=== PATIENT | female | born 1990 | race Caucasian/White ===

== ENCOUNTER 2017-12-24 11:03 | Emergency (ER) | payer BC ==
--- NOTE | 2017-12-24 11:13 | ER Document Report ---
ED Medical Screen (RME) - General Chief Complaint: Headache Stated Complaint: HEADACHE Mode of Arrival: Ambulatory Information source: Patient Notes: 27-year-old female 1 para 0 approximately 20 weeks presents after having 2 principal episodes today. Patient notes she was at work has not been eating or drinking well the past few days noted she felt lightheaded was able to hold onto a rail and gently go to the ground. Patient denies any other significant trauma or bleeding notes when she got up she had a second such episode I have greeted and performed a rapid initial assessment of this patient. A comprehensive ED assessment and evaluation of the patient, analysis of test results and completion of the medical decision making process will be conducted by additional ED providers. PHYSICAL EXAMINATION: GENERAL: Well-appearing, well-nourished and in no acute distress. HEAD: Atraumatic, normocephalic. EYES: Pupils equal round extraocular movements intact, conjunctiva are normal. ENT: Nares patent NECK: Normal range of motion LUNGS: No respiratory distress Musculoskeletal: Normal range of motion NEUROLOGICAL: Normal speech, normal gait. PSYCH: Normal mood, normal affect. SKIN: Warm, Dry, normal turgor, no rashes or lesions noted. - Related Data Allergies/Adverse Reactions: No Known Allergies Allergy (Unverified 12/24/17 11:06) Physical Exam - Vital signs Vitals: Temp Pulse BP Pulse Ox 98.8 F 87 108/50 L 100 12/24/17 11:08 12/24/17 11:08 12/24/17 11:08 12/24/17 11:08 Course - Vital Signs Vital signs: Temp Pulse Resp BP Pulse Ox 98.8 F 87 108/50 L 100 12/24/17 11:08 12/24/17 11:08 12/24/17 11:08 12/24/17 11:08
[2017-12-24 11:51] LABS: ABSOLUTE EOSINOPHILS # (AUTO) 0.3 10^3/uL (0.0-0.6); ABSOLUTE LYMPHOCYTES (AUTO) 1.2 10^3/uL (0.5-4.7); ABSOLUTE MONOCYTES (AUTO) 0.4 10^3/uL (0.1-1.4); ABSOLUTE NEUT (AUTO) 6.4 10^3/uL (1.7-8.2); BASOPHILS % (AUTO) 0.3 % (0-2); EOSINOPHILS % (AUTO) 3.4 % (0-6); HEMATOCRIT 36.4 % (36.0-47.0); HEMOGLOBIN 12.5 g/dL (12.0-15.5); LYMPHOCYTES % (AUTO) 14.7 % (13-45); MEAN CORPUSCULAR HEMOGLOBIN 31.8 pg (27.0-33.4); MEAN CORPUSCULAR HGB CONC 34.3 g/dL (32.0-36.0); MEAN CORPUSCULAR VOLUME 93 fl (80-97); MONOCYTES % (AUTO) 4.9 % (3-13); PLATELET COUNT 234 10^3/uL (150-450); RED BLOOD COUNT 3.92 10^6/uL (3.72-5.28); SEGMENTED NEUTROPHILS % (AUTO) 76.7 % (42-78); TOTAL CELLS COUNTED % (AUTO) 100 %; WHITE BLOOD COUNT 8.3 10^3/uL (4.0-10.5)
[2017-12-24 12:00] LABS: APPEARANCE,URINE CLOUDY; BILIRUBIN,URINE NEGATIVE (NEGATIVE); COLOR,URINE YELLOW; GLUCOSE, URINE NEGATIVE (NEGATIVE); KETONES,URINE NEGATIVE (NEGATIVE)
[2017-12-24 12:01] LABS: LEUKOCYTE ESTERASE,URINE LARGE (NEGATIVE); NITRITE,URINE NEGATIVE (NEGATIVE); PROTEIN,URINE NEGATIVE (NEGATIVE); URINE SPECIFIC GRAVITY 1.003; UROBILINOGEN,URINE NEGATIVE mg/dL (<2.0)
[2017-12-24 12:06] LABS: ALANINE AMINOTRANSFERASE 28 U/L (9-52); ALBUMIN 3.6 g/dL (3.5-5.0); ALKALINE PHOSPHATASE 45 U/L (38-126); ANION GAP 10 (5-19); ASPARTATE AMINO TRANSFERASE 20 U/L (14-36); BILIRUBIN,DIRECT 0.2 mg/dL (0.0-0.4); BILIRUBIN,TOTAL 0.6 mg/dL (0.2-1.3); BLOOD UREA NITROGEN 10 mg/dL (7-20); CALCIUM 9.4 mg/dL (8.4-10.2); CARBON DIOXIDE 25 mmol/L (22-30); CHLORIDE 105 mmol/L (98-107); GLUCOSE 70 mg/dL (75-110); POTASSIUM 4.5 mmol/L (3.6-5.0); SODIUM 139.8 mmol/L (137-145); TOTAL PROTEIN 6.4 g/dL (6.3-8.2)
[2017-12-24] MEDS ORDERED: CEPHALEXIN 250 MG CAPSULE PO ONE (12:19)
--- NOTE | 2017-12-24 12:43 | ER Document Report ---
ED General - General Chief Complaint: Headache Stated Complaint: HEADACHE Time Seen by Provider: 12/24/17 11:13 Mode of Arrival: Ambulatory Information source: Patient Notes: Pt is a 27 year old female approximately 20 weeks who presents to the ER today for lightheadedness, headache intermittently for the past 2 weeks and almost passing out just prior to arrival at work. She states she was standing when she felt like she was going to pass out, got lightheaded and sat down. She did not pass out. She admits she hasn't been eating as much because she hasn't had an appeitite. She denies any dysuria, abd cramping, vaginal bleeding, fever, chills, vomiting. She states she follows with OBGYN regularly and has had a normal so far. - Related Data Allergies/Adverse Reactions: No Known Allergies Allergy (Unverified 12/24/17 11:06) Past Medical History - General Information source: Patient - Social History Smoking Status: Never Smoker Chew tobacco use (# tins/day): No Frequency of alcohol use: None Drug Abuse: None Family History: Reviewed & Not Pertinent Patient has suicidal ideation: No Patient has homicidal ideation: No Renal/ Medical History: Denies: Hx Peritoneal Dialysis Past Surgical History: Reports: Hx Tonsillectomy Review of Systems - Review of Systems Constitutional: No symptoms reported EENT: No symptoms reported Cardiovascular: No symptoms reported Respiratory: No symptoms reported Gastrointestinal: No symptoms reported Genitourinary: No symptoms reported Female Genitourinary: See HPI Musculoskeletal: No symptoms reported Skin: No symptoms reported Hematologic/Lymphatic: No symptoms reported Neurological/Psychological: See HPI Physical Exam - Vital signs Vitals: Temp Pulse BP Pulse Ox 98.8 F 87 108/50 L 100 12/24/17 11:08 12/24/17 11:08 12/24/17 11:08 12/24/17 11:08 - Notes Notes: PHYSICAL EXAMINATION: GENERAL: Well-appearing and in no acute distress. HEAD: Atraumatic, normocephalic. EYES: slightly light sensitive, Pupils equal round and reactive to light, extraocular movements intact, sclera anicteric, conjunctiva are normal. NECK: Normal range of motion, supple without lymphadenopathy LUNGS: CTAB and equal. No wheezes rales or rhonchi. HEART: Regular rate and rhythm without murmurs ABDOMEN: Soft, no tenderness. No guarding, no rebound BACK: no vertebral tenderness, normal ROM GI/: no CVA tenderness EXTREMITIES: Normal range of motion, no pitting edema. No cyanosis. NEUROLOGICAL: Cranial nerves grossly intact. Normal sensory/motor exams. PSYCH: Normal mood, normal affect. SKIN: Warm, Dry, normal turgor, no rash Course - Re-evaluation Re-evalutation: 12/24/17 22:46 pt has a UTI on urinalysis today. I will treat her with abx. WBC normal, hgb normal. vitals are all normal. pt to follow up with obgyn. - Vital Signs Vital signs: Temp Pulse Resp BP Pulse Ox 98.4 F 87 18 118/64 98 12/24/17 13:17 12/24/17 11:08 12/24/17 13:17 12/24/17 13:17 12/24/17 13:17 - Laboratory Result Diagrams: 12/24/17 11:22 12/24/17 11:22 Laboratory results interpreted by me: 12/24/17 12/24/17 11:22 11:22 Glucose 70 L Ur Leukocyte Esterase LARGE H Discharge - Discharge Clinical Impression: Pre-syncope Qualifiers: Weeks of gestation: 20 weeks Qualified Code(s): Z3A.20 - 20 weeks gestation of UTI (urinary tract infection) Qualifiers: Urinary tract infection type: acute cystitis Hematuria presence: without hematuria Qualified Code(s): N30.00 - Acute cystitis without hematuria Condition: Stable Disposition: HOME, SELF-CARE Instructions: Cephalexin ([facility]), Urinary Tract Infection ([facility]) Additional Instructions: Return immediately for any new or worsening symptoms. Follow up with primary care provider, call tomorrow to make followup appointment. Drink plenty of water, your sugar was also a little bit low today, try to eat carbohydrates throughout the day to keep her sugar elevated at a normal limit. Prescriptions: Cephalexin [Cephalexin 250 MG Tablet] 1 tab PO BID #10 tablet Forms: Return to Work Referrals: NOMAN AVENDAÑO MD [Primary Care Provider] - Follow up as needed
[2017-12-24 13:18] VITALS: BP 118/64
--- NOTE | 2017-12-24 15:56 | EKG REPORT ---
SEVERITY:- BORDERLINE ECG - ECTOPIC ATRIAL RHYTHM : Confirmed by: Rizwan Mckeon 24-Dec-2017 15:55:16
== END 2017-12-24 13:18 | disposition home or self-care (01) ==
LOC: ER 11:03
DX: O26.892 Other specified pregnancy related conditions, second trimester (principal); R55 Syncope and collapse; R51 Headache; O23.12 Infections of bladder in pregnancy, second trimester; Z3A.20 20 weeks gestation of pregnancy
CPT/HCPCS: 36415; 80053; 81001; 85025; 86900; 86901; 93005; 93010; 99284

== ENCOUNTER 2018-03-24 11:38 | Outpatient (CLI) | payer BC ==
--- NOTE | 2018-03-24 12:37 | Non Stress Test Report ---
Non Stress Test Datetime Report Generated by CPN: 03/24/2018 12:37 DEMOGRAPHIC EGA NST: 33.2 INDICATION Indication for Study: Ordered by Provider Indication for Study (NST) Other: repeat from the office MONITORING Monitor Explained: Monitor Explained; Test Explained; Patient Verbalized Understanding Time on Monitor: 03/24/2018 12:22 Time off Monitor: 03/24/2018 12:36 NST Duration: 14 NST INTERVENTIONS NST Interventions: Reposition Patient Physician Notified NST: P Hill CNM BABY A: [id number] BABY A Movement : Present Contraction Frequency : irreeg FHR Baseline : 140 Accelerations : 15X15 Decelerations : None Variability : Moderate 6-25bpm NST Review: Meets Criteria for Reactive NST NST Review and Verified By : [place] RNC NST Results: Reactive NST REPORT Report Trigger: Send Report
== END 2018-03-24 12:30 | disposition home or self-care (01) ==
LOC: LC 11:38
PROVIDERS: ATTEND Obstetrics & Gynecology
PROC: 4A1HXCZ Monitoring of Products of Conception, Cardiac Rate, External Approach (ICD-10-PCS; principal; 2018-03-24)
DX: Z34.93 Encounter for supervision of normal pregnancy, unspecified, third trimester (principal)
CPT/HCPCS: 59025

== ENCOUNTER 2018-04-21 04:56 | Outpatient (CLI) | payer BC ==
[2018-04-21 05:55] LABS: URINE AMPHETAMINES SCREEN NEGATIVE; URINE BARBITURATES SCREEN NEGATIVE; URINE BENZODIAZEPINES SCREEN NEGATIVE; URINE COCAINE SCREEN NEGATIVE; URINE MARIJUANA (THC) SCREEN NEGATIVE; URINE METHADONE SCREEN NEGATIVE; URINE PHENCYCLIDINE SCREEN NEGATIVE
[2018-04-21 06:18] LABS: APPEARANCE,URINE SLIGHTLY-CLOUDY; BILIRUBIN,URINE NEGATIVE (NEGATIVE); COLOR,URINE YELLOW; GLUCOSE, URINE NEGATIVE (NEGATIVE); KETONES,URINE NEGATIVE (NEGATIVE); LEUKOCYTE ESTERASE,URINE NEGATIVE (NEGATIVE); NITRITE,URINE NEGATIVE (NEGATIVE); PROTEIN,URINE NEGATIVE (NEGATIVE); URINE SPECIFIC GRAVITY 1.011; UROBILINOGEN,URINE NEGATIVE mg/dL (<2.0)
[2018-04-21] MEDS ORDERED: RINGERS SOLUTION,LACTATED 1,000 ML IV PRN (06:53)
[2018-04-21] MEDS ORDERED: RINGERS SOLUTION,LACTATED 1,000 ML IV ONE (06:56)
[2018-04-21] MEDS ORDERED: TERBUTALINE SULFATE INJ/PF 1 MG/1 ML SDV SUBCUT ONE (07:58)
[2018-04-21] MEDS ORDERED: TERBUTALINE SULFATE INJ/PF 1 MG/1 ML SDV ONE (08:01)
== END 2018-04-21 10:09 | disposition short-term general hospital (02) ==
LOC: LC 04:56
PROVIDERS: ATTEND Obstetrics & Gynecology
PROC: 4A1HXCZ Monitoring of Products of Conception, Cardiac Rate, External Approach (ICD-10-PCS; principal; 2018-04-21)
DX: O47.1 False labor at or after 37 completed weeks of gestation (principal); Z3A.37 37 weeks gestation of pregnancy
CPT/HCPCS: 81005; 80307; 59025; J3105

== ENCOUNTER 2020-02-12 10:54 | Outpatient (CLI) | payer BC, MEDICAID ==
--- NOTE | 2020-02-12 11:45 | Non Stress Test Report ---
Non Stress Test Datetime Report Generated by CPN: 02/12/2020 11:44 DEMOGRAPHIC EGA NST: 35.0 INDICATION Indication for Study (NST) Other: provider orders Indication for Study (NST) Other: IUP @ 35.0 wks, IUGR VITAL SIGNS Temperature - NST: 98.0 Temperature - NST: 98.0 Pulse - NST: 77 Pulse - NST: 77 RESP - NST: 18 RESP - NST: 18 NBPSYS NST: 108 NBPSYS NST: 112 NBPDIA NST: 69 NBPDIA NST: 68 MONITORING Monitor Explained: Monitor Explained; Test Explained; Patient Verbalized Understanding Monitor Explained: Monitor Explained; Test Explained; Patient Verbalized Understanding Time on Monitor: 02/12/2020 11:04 Time on Monitor: 02/12/2020 11:04 Time off Monitor: 02/12/2020 11:36 Time off Monitor: 02/12/2020 11:35 NST Duration: 32 NST Duration: 31 NST INTERVENTIONS NST Interventions: PO Hydration; Reposition Patient NST Interventions: PO Hydration Physician Notified NST: pjones Physician Notified NST: Dodie Hill CNM BABY A: [id number] BABY A Movement : Present Movement : Present Contraction Frequency : irregular Contraction Frequency : Irregular FHR Baseline : 120 FHR Baseline : 125 Accelerations : 15X15 Accelerations : 15X15 Decelerations : None Variability : Moderate 6-25bpm Variability : Moderate 6-25bpm NST Review: Meets Criteria for Reactive NST NST Review: Meets Criteria for Reactive NST NST Review and Verified By : félix cruz NST Results: Reactive NST Results: Reactive NST REPORT Report Trigger: Send Report
== END 2020-02-12 11:41 | disposition home or self-care (01) ==
LOC: LC 10:54
PROVIDERS: ATTEND Obstetrics & Gynecology Gynecology
DX: O36.5930 Maternal care for other known or suspected poor fetal growth, third trimester, not applicable or unspecified (principal); Z3A.35 35 weeks gestation of pregnancy
CPT/HCPCS: 59025

== ENCOUNTER 2020-02-27 10:26 | Inpatient (IN) | payer BC, MEDICAID ==
[2020-02-27 11:12] LABS: APPEARANCE,URINE CLEAR; BILIRUBIN,URINE NEGATIVE (NEGATIVE); COLOR,URINE STRAW; GLUCOSE, URINE NEGATIVE (NEGATIVE); KETONES,URINE NEGATIVE (NEGATIVE); LEUKOCYTE ESTERASE,URINE NEGATIVE (NEGATIVE); NITRITE,URINE NEGATIVE (NEGATIVE); PROTEIN,URINE NEGATIVE (NEGATIVE); URINE SPECIFIC GRAVITY 1.003; UROBILINOGEN,URINE NEGATIVE mg/dL (<2.0)
--- NOTE | 2020-02-27 11:41 | Non Stress Test Report ---
Non Stress Test Datetime Report Generated by CPN: 02/27/2020 11:41 DEMOGRAPHIC Test Number: 2 EGA NST: 37.1 VITAL SIGNS Temperature - NST: 98.0 Pulse - NST: 76 RESP - NST: 18 NBPSYS NST: 111 NBPDIA NST: 67 MONITORING Monitor Explained: Monitor Explained; Test Explained; Patient Verbalized Understanding Time on Monitor: 02/27/2020 10:40 Time off Monitor: 02/27/2020 11:00 NST Duration: 20 NST INTERVENTIONS NST Interventions: Reposition Patient Physician Notified NST: Dr. Kinney BABY A: [id number] BABY A Movement : Present Contraction Frequency : irregular FHR Baseline : 125 Accelerations : 15X15 Decelerations : None Variability : Moderate 6-25bpm NST Review: Meets Criteria for Reactive NST NST Review and Verified By : Maru Lee RN NSMary Results: Reactive NST REPORT Report Trigger: Send Report
[2020-02-27 11:44] LABS: URINE AMPHETAMINES SCREEN NEGATIVE; URINE BARBITURATES SCREEN NEGATIVE; URINE BENZODIAZEPINES SCREEN NEGATIVE; URINE COCAINE SCREEN NEGATIVE; URINE MARIJUANA (THC) SCREEN NEGATIVE; URINE METHADONE SCREEN NEGATIVE; URINE PHENCYCLIDINE SCREEN NEGATIVE
--- NOTE | 2020-02-27 13:10 | Admission Physical ---
Datetime Report Generated by CPN: 02/27/2020 13:10 CURRENT ADMISSION Chief Complaint: Decreased Movement; Sent from OB Office for Evaluation and Treatment - Please Specify Chief Complaint Other: IUGR<3% Admit Impression : Repeat Section Admit Impression- Other: Plan for repeat CS due to IUGR <3% and uterine artery dopplers with intermittent end diastolic flow Admit Plan: Admit to Unit; Initiate Section Protocol ALLERGIES Medication Allergies: No Medication Allergies: No Known Allergies (02/12/2020) Latex: No Latex Allergies OBSTETRICAL HISTORY EDC: 03/18/2020 00:00 : 2 Para: 1 Term: 1 : 0 SAB: 1 IAB: 1 Ectopic: 0 Livin Cesareans: 1 VBACs: 0 Multiple Births: 0 Gestational Diabetes: No Rh Sensitization: No Incompetent Cervix: No SHERLEY: No Infertility: No ART Treatment: No Uterine Anomaly: No IUGR: Yes Hx Previous C/S: Yes Macrosomia: No Hx Loss/Stillborn: No PIH: No Hx : No Placenta Previa/Abruption: No Depression/PP Depression: No PTL/PROM: No Post Hemorrhage: No Current Procedures: Ultrasound; NST; BPP; Doppler Flow Study Obstetrical History Comments: G1 - 2017 full-term female, c/s secondary to spina bifida; no other complications G2 - current, IUGR MEDICAL HISTORY Diabetes: No Blood Transfusion: No Pulmonary Disease (Asthma, TB): No Breast Disease: No Hypertension: No Metal Loader Surgery: No Heart Disease: No Hosp/Surgery: Yes Autoimmune Disorder: No Anesthetic Complications: No Kidney Disease: No Abnormal Pap Smear: No Neuro/Epilepsy: No Psychiatric Disorders: No Other Medical Diseases: No Hepatitis/Liver Disease: No Significant Family History: No Varicosities/Phlebitis: No Trauma/Violence : No Thyroid Dysfunction: No Medical History Comments: tonsillectomy as infant, hospitalization for of child in 2018 INFECTIOUS HISTORY Gonorrhea: No Genital Herpes: No Chlamydia: No Tuberculosis: No Syphilis: No Hepatitis: No HIV/AIDS Exposure: No Rash or Viral Illness: No HPV: No PHYSICAL EXAM General: Normal HEENT: Normal Neurologic: Normal Thyroid: Normal Heart: Normal Lungs: Normal Breast: Normal Back: Normal Abdomen: Normal Genitourinary Exam: Normal Extremities: Normal DTRs: Normal Pelvic Type: Adequate Vital Signs: Reviewed; Within Normal Limits VAGINAL EXAM Dilatation: 0 Effacement: 25 Station: -2 Contraction Comments: Irregular contraction MEMBRANES Membranes: Intact FETUS A EGA: 37.1 Monitoring: External US FHR- Baseline: 125 Variability: Moderate 6-25bpm Accelerations: 15X15 Decelerations: None FHR Category: Category I Estimated Weight (gm): 4 lb 16 oz Presentation: Vertex Admit Comment: at 37.1 wks EGA by first trimester US dating presented for Non-reactive NST at office and IUGR of <3% today. SHe had US yesterday showing increased resisitance and today dopplers show absent intermittent end diastolic flow. Discussed iwth patient and recommend repeat CS . Risk and benefits reviewed. ALternatives discussed. Consent signed. -Admit to LDR -CEFM -NPO since 814 (bananna and yogurt) >IVFs LR bolus and then D5 LR at 125cc/hr -Abdominal prep -SCDs -Ancef 2 gms prior to OR -Plan for repeat CS INFORMED CONSENT Informed Consent Obtained: Section Delivery; Risks, Benefits and Alternatives Discussed Signature: with User ID: Benjamin : with User ID: Benjamin
[2020-02-27] MEDS ORDERED: KETOROLAC TROMETHAMINE INJ/PF 30 MG/1 ML SDV ONE (16:02)
[2020-02-27] MEDS ORDERED: EPHEDRINE SULFATE INJ 50 MG/1 ML AMPULE ONE (16:02)
[2020-02-27] MEDS ORDERED: FENTANYL CITRATE INJ/PF 100 MCG/2 ML AMPUL ONE (16:02)
[2020-02-27] MEDS ORDERED: PHENYLEPHRINE HCL INJ/PF 10 MG/1 ML SDV ONE (16:02)
[2020-02-27] MEDS ORDERED: OXYTOCIN 10 UNIT/ML VIAL ONE (16:02)
[2020-02-27] MEDS ORDERED: ONDANSETRON HCL INJ/PF 4 MG/2 ML SDV ONE (16:03)
[2020-02-27] MEDS ORDERED: ACETAMINOPHEN 1,000 MG/100 ML RTUPB IV ONE (16:03)
[2020-02-27] MEDS ORDERED: METHYLERGONOVINE MALEATE INJ/PF 0.2 MG/1 ML AMPULE ONE (16:03)
[2020-02-27] MEDS ORDERED: MIDAZOLAM 2 MG/2 ML INJ ONE (16:03)
[2020-02-27] MEDS ORDERED: CEFAZOLIN SODIUM 1 GM in DEXTROSE 5%-WATER 50 ML IV PRN (16:45)
[2020-02-27] MEDS ORDERED: CEFAZOLIN 1 GM/D5W RTU 1 GM/50 ML RTUPB IV PRN (16:52)
[2020-02-27 17:00] LABS: ABSOLUTE EOSINOPHILS # (AUTO) 0.1 10^3/uL (0.0-0.6); ABSOLUTE LYMPHOCYTES (AUTO) 1.6 10^3/uL (0.5-4.7); ABSOLUTE MONOCYTES (AUTO) 0.4 10^3/uL (0.1-1.4); ABSOLUTE NEUT (AUTO) 4.6 10^3/uL (1.7-8.2); BASOPHILS % (AUTO) 0.5 % (0-2); EOSINOPHILS % (AUTO) 1.9 % (0-6); HEMATOCRIT 38.7 % (36.0-47.0); HEMOGLOBIN 13.2 g/dL (12.0-15.5); MEAN CORPUSCULAR HEMOGLOBIN 31.9 pg (27.0-33.4); MEAN CORPUSCULAR HGB CONC 34.1 g/dL (32.0-36.0); MEAN CORPUSCULAR VOLUME 94 fl (80-97); MONOCYTES % (AUTO) 5.9 % (3-13); PLATELET COUNT 202 10^3/uL (150-450); RED BLOOD COUNT 4.14 10^6/uL (3.72-5.28); RED CELL DISTRIBUTION WIDTH 12.8 % (11.5-14.0); SEGMENTED NEUTROPHILS % (AUTO) 67.7 % (42-78); TOTAL CELLS COUNTED % (AUTO) 100 %; WHITE BLOOD COUNT 6.9 10^3/uL (4.0-10.5)
[2020-02-27] MEDS ORDERED: DEXTROSE 40% GEL 15 GM TUBE PO PRN ×2 (17:10)
[2020-02-27] MEDS ORDERED: OXYCODONE-ACETAMINOPHEN 5-325 MG TABLET PO PRN ×3 (17:10→17:38)
[2020-02-27] MEDS ORDERED: OXYTOCIN/0.9 % SODIUM CHLORIDE 30 UNIT/500 ML RTUINJ IV PRN (17:10)
[2020-02-27] MEDS ORDERED: MEASLES,MUMPS&RUBELLA VACC/PF 0.5 ML VIAL SUBCUT PRN (17:10)
[2020-02-27] MEDS ORDERED: PROMETHAZINE HCL INJ 25 MG/1 ML VIAL IV PRN ×3 (17:10→17:38)
[2020-02-27] MEDS ORDERED: DEXTROSE 50%-WATER 25 GM/50 ML DISP.SYRIN IV PRN ×2 (17:10)
[2020-02-27] MEDS ORDERED: HYDROMORPHONE HCL INJ/PF 2 MG/ML AMPULE IV PRN (17:10)
[2020-02-27] MEDS ORDERED: GLUCAGON,HUMAN RECOMB 1 MG INJ SUBCUT PRN (17:10)
[2020-02-27] MEDS ORDERED: ACETAMINOPHEN 325 MG TABLET PO PRN (17:10)
[2020-02-27] MEDS ORDERED: DIPH/PERTUSS(ACELL)/TETANUS VAC/PF 0.5 ML SYR (>=10YO) IM PRN (17:10)
[2020-02-27] MEDS ORDERED: RINGERS SOLUTION,LACTATED 1,000 ML IV PRN (17:10)
[2020-02-27] MEDS ORDERED: CEFAZOLIN INJ 1 GM VIAL ONE (17:12)
[2020-02-27] MEDS ORDERED: CEFAZOLIN 2 GM/D5W RTU 2 GM/50 ML RTUPB IV ONE (17:13)
[2020-02-27] MEDS ORDERED: FENTANYL CITRATE INJ/PF 100 MCG/2 ML AMPUL IV PRN ×3 (17:38)
[2020-02-27] MEDS ORDERED: MEPERIDINE HCL/PF INJ 25 MG/1 ML DISP.SYRIN IV PRN (17:38)
[2020-02-27] MEDS ORDERED: DIPHENHYDRAMINE HCL 50 MG/ML VIAL IV PRN (17:38)
[2020-02-27] MEDS ORDERED: ONDANSETRON HCL INJ/PF 4 MG/2 ML SDV IV PRN (17:38)
[2020-02-27] MEDS ORDERED: MORPHINE SULFATE 10 MG/ML INJ IV PRN (17:38)
[2020-02-27] MEDS ORDERED: MEPERIDINE HCL/PF INJ 25 MG/1 ML DISP.SYRIN ONE (17:57)
[2020-02-27] MEDS ORDERED: LIDOCAINE 2% INJ-PF (20 MG/ML) 10 ML AMPUL ONE (18:11)
[2020-02-27] MEDS ORDERED: PROPOFOL INJ 200 MG/20 ML VIAL IV ONE (18:11)
[2020-02-27] MEDS ORDERED: ROPIVACAINE HCL 0.2% INJ/PF (2 MG/ML) 20 ML SDV ONE (18:41)
[2020-02-27] MEDS: DOCUSATE SODIUM 100 MG CAPSULE PO SCH (19:41)
[2020-02-27] MEDS ORDERED: MORPHINE SULFATE 10 MG/ML INJ ONE (19:44)
--- NOTE | 2020-02-27 19:56 | Delivery Summary ---
Del Sum A-C Datetime Report Generated by CPN: 02/27/2020 19:56 DELIVERY PERSONNEL DELIVERY PERSONNEL: [id number] Delivery Doctor:: Latonia Kinney MD PHARMACY BILLING ADJUDICATOR:: Jessica Truong CRNA Learning Coach:: Rosaura Lee RN Nursery Nurse:: Pia Longoria RN Financial Service Representative/LINE DECORATOR: Sury Suero, ST Financial Service Representative/LINE DECORATOR: Sandra Sandy, POULTRY CLE[employer]ER MATERNAL INFORMATION Delivery Anesthesia: Spinal Medications After Delivery: Pitocin Drip 20 Units/1000ml NSS; Other-Please Comment Meds After Delivery Comment: started in OR by PHARMACY BILLING ADJUDICATOR; additional 30 units in 500mLs NS given in PACU Delivery QBL: 855 Maternal Complications: None LABOR SUMMARY EDC: 03/18/2020 00:00 No. Babies in Womb: 1 LABOR INFORMATION Group B Beta Strep: Negative STAGES OF LABOR Stage 3 hr: 0 Stage 3 min: 1 VAGINAL DELIVERY Laceration Extension #1: N/A Laceration Repair: Not Applicable Sponge Count Correct: N/A Sharps Count Correct: N/A CSECTION DELIVERY Primary Indication: Repeat Elective Secondary Indication: Other Other Secondary Indication: IUGR CSection Urgency: Non-Scheduled CSection Incidence: Repeat Labor: No Labor Elective: Elective CSection Incision: Lower Uterine Transverse BABY A INFORMATION Delivery Date/Time: 02/27/2020 17:43 Method of Delivery: Nurse Controlled Delivery: No Born in Route : No : N/A Forceps: N/A Vacuum Extraction: N/A Shoulder Dystocia : No PRESENTATION/POSITION BABY A Presentation: Cephalic Cephalic Presentation: N/A Breech Presentation: N/A PLACENTA INFORMATION BABY A Placenta Delivery Time : 02/27/2020 17:44 Placenta Method of Delivery: Manual Removal Placenta Status: Delivered SCORES BABY A Heart Rate 1 min: >100 bpm Resp Effort 1 min: Good Cry Reflex Irritability 1 min: Cough or Sneeze or Pulls Away Muscle Tone 1 min: Active Motion Color 1 min: Blue/Pale SCORE 1 MIN: 8 Heart Rate 5 min: >100 bpm Resp Effort 5 min: Good Cry Reflex Irritability 5 min: Cough or Sneeze or Pulls Away Muscle Tone 5 min: Active Motion Color 5 min: Body [place], Extremities Blue SCORE 5 MIN: 9 INFORMATION BABY A Gestational Age at Delivery: 37.1 Gestational Status: Early Term- 37- 38.6 Weeks Infant Outcome : Liveborn Infant Condition : Stable Infant Sex: Female IDENTIFICATION BABY A Verification Date/Time: 02/27/2020 17:56 ID Band Number: [id number] Mother's Name Verified: Yes Infant RN Verifying : Maru ReynosoQuincyQIAN bruce Additional Verifying Personnel: Taylor Longoria RN WEIGHT/LENGTH BABY A Infant Birthweight (gm): 2291 Weight (lb): 5 Infant Weight (oz): 1 Length (in): 16.00 Length (cm): 40.64 CORD INFORMATION BABY A No. Cord Vessels: 3 Nuchal Cord : N/A Cord Blood Taken: Yes-For Eval (Mom's Blood Type - or O+) Suction: Mouth; Nose ASSESSMENT BABY A Skin to Skin: No Infant Care By: Nursery Transferred To: Nursery
--- NOTE | 2020-02-27 19:56 | Birth Certificate Data ---
Cert Data Datetime Report Generated by CPDarwin: 02/27/2020 19:56 CERTIFICATE DATA 47a. Care: Yes (02/12/2020 11:08:Laura Mcintyre RN) 47b. Date of First Visit: 09/04/2019 00:00 (02/12/2020 11:08:Laura Mcintyre RN) 47c. Date of Last Visit: 02/27/2020 00:00 (02/12/2020 11:08:Laura Mcintyre RN) 47d. Number of Visits: 11 (02/12/2020 11:08:Laura Mcintyre RN) 48a. Number of Prev Live Births: 1 (02/12/2020 11:08:Laura Mcintyre RN) 48b. Now Livin (02/12/2020 11:08:Mary Lomeli RN) 48c. Live Births Now : 0 (02/12/2020 11:08:QS system process) 48e. Losses: 0 (02/12/2020 11:08:Laura Mcintyre RN) RISK FACTORS IN THIS 49a. Diabetes: No (02/12/2020 11:08:Rosaura Lee RN) 49b. Hypertension: No (02/12/2020 11:08:Rosaura Lee RN) 49c. Previous Births: 0 (02/12/2020 11:08:Mary Lomeli RN) 49d. Stillborns: No (02/12/2020 11:08:Rosaura Lee RN) 49d. IUGR: Yes (02/12/2020 11:08:Rosaura Lee RN) 49e. Infertility Treatment: No (02/12/2020 11:08:Rosaura Lee RN) 49f. Previous Cesareans: 1 (02/12/2020 11:08:Laura Mcintyre RN) Mother's Height 50b. Height Inches: 62 (02/27/2020 13:13:QS system process) Mother's Weight 51a. Pre- Weight (lbs): 95 (02/12/2020 11:08:Laura Mcintyre RN) 51b. Weight at Delivery (lbs): 108 (02/27/2020 13:13:QS system process) Infections Present/Treated 53a. Gonorrhea: No (02/12/2020 11:08:Rosaura Lee RN) Results this Hospital Visit : Negative (02/12/2020 11:08:Laura Mcintyre RN) 53b. Syphilis: No (02/12/2020 11:08:Rosaura Lee RN) 53c. Chlamydia: Yes (02/12/2020 11:08:Rosaura Lee RN) Results this Hospital Visit: Negative (02/12/2020 11:08:Laura Mcintyre RN) 53d. Hepatitis B: No (02/12/2020 11:08:Rosaura Lee RN) Results this Hospital Visit: Negative (02/12/2020 11:08:Laura Mcintyre RN) 53e. Hepatitis C: Negative (02/12/2020 11:08:Laura Mcintyre RN) 53h. Mother Tested for HBsAG: Yes (02/12/2020 11:08:Laura Mcintyre RN) 53i. Date Tested: 09/04/2019 00:00 (02/12/2020 11:08:TAMRA Butt 53j. Test Result: Negative (02/12/2020 11:08:Laura Mcintyre RN) Obstetric Procedures 54a, b, c. Obstetric Procedures: Ultrasound; NST; BPP; Doppler Flow Study (02/12/2020 11:08:Rosaura Lee RN) 57c. Non-Vertex Presentation A: N/A (02/12/2020 11:08:Rosaura Lee RN) 57f. Mat Ch[place] or Temp >100.4: 98.8 (02/12/2020 11:08:Rosaura Lee RN) 57h. Intolerance of Labor: Repeat Elective (02/12/2020 11:08:Rosaura Lee RN) : Other (02/12/2020 11:08:Rosaura Lee RN) : IUGR (02/12/2020 11:08:Rosaura Lee RN) Method of Delivery 58a. Forceps - Unsuccessful A: N/A (02/12/2020 11:08:Rosaura Lee RN) 58b. Vacuum - Unsuccessful A: N/A (02/12/2020 11:08:Rosaura Lee RN) 58c. Presentation at 58c. Presentation at - A : N/A (02/12/2020 11:08:Rosaura Lee RN) 58c. Presentation at - A : N/A (02/12/2020 11:08:Rosaura Lee RN) 58c. Presentation at - A : Cephalic (02/12/2020 11:08:Rosaura Lee RN) Final Route and Method of Del 58d. Baby A Route/Delivery: (02/12/2020 11:08:Rosaura Lee RN) 58e. Trial of Labor Attempted A: N/A (02/12/2020 11:08:Rosaura Lee RN) Birthweight Baby A: 2291 (02/12/2020 11:08:Rosaura Lee RN) 60a. Pounds : 5 (02/12/2020 11:08:QS system process) 60b. Ounces: 1 (02/12/2020 11:08:QS system process) 61. GA at Delivery Baby A: 37.1 (02/12/2020 11:08:Rosaura Lee RN) : Early Term- 37- 38.6 Weeks (02/12/2020 11:08:QS system process) 62a. 5 Minute Baby A: 9 (02/12/2020 11:08:QS system process)
--- NOTE | 2020-02-27 20:04 | Operative Report ---
Operative Report DATE OF SURGERY: 02/27/20 PREOPERATIVE DIAGNOSIS: Intrauterine at 37.1 weeks EGA. Intrauterine growth restriction, severe less than 3%. Abnormal uterine artery dopplers with intermittent absent end diastolic flow POSTOPERATIVE DIAGNOSIS: same as above. Uterine fibroid 2 cm on anterior uterus. Scar tissue bladder and anterior uterus, anterior abdominal wall and rectus fascia OPERATION: Repeat section SURGEON: RIGOBERTO MILLER ANESTHESIA: Spinal TISSUE REMOVED OR ALTERED: Placenta COMPLICATIONS: None ESTIMATED BLOOD LOSS: 900cc INTRAOPERATIVE FINDINGS: Uterus with 2 cm subserosal fibroid on anterior surface just above lower uterine segment, bladder adherent to lower uterine segment, bilateral fallopian tubes and ovaries normal. Viable female infant, pink and with good tone at delivery. Beginning to cry and grimmace prior to hand off. Placenta grossly normal. Uterine atony initially but resolved with pitocin and massage. Tissue friable below fibroid and extra stitches and surgiseal placed. PROCEDURE: IV fluids: per anesthesia record Urinary output: 250 cc clear yellow urine noted in ghotra bag Findings: Normal-appearing uterus other than 2 cm subserosal fibroid and bladder adherent to lower uterine segment, bilateral fallopian tubes and ovaries. Viable female infant Position: To recovery room in stable condition Description of procedure: The patient was taken to the operating room and spinal anesthesia was administered and found to be adequate. She was then placed on the OR table in the supine position with a slight leftward tilt. Patient was prepped and draped in usual sterile fashion. Ancef 2 gms was given IV prior to the procedure for infection prophylaxis.. Timeout was taken. A Pfannenstiel skin incision was then made approximately 3 cm above the pubic symphysis and carried down to level the rectus fascia. The rectus fascia was then nicked in the midline with a scalpel and the fascial incision was extended laterally with use of curved Almonte scissors. The rectus fascia was then grasped with 2 Kocker clamps elevated and the underlying rectus muscle was dissected off both bluntly and sharply. Scar tissue noted . Any bleeding controlled with cautery. The rectus muscles were then split in the midline and the peritoneum was entered. The peritoneal incision was then extended by manually stretching the peritoneum. The bladder blade was positioned. The bladder was dissected away from the lower uterine segement with pickups and metzenbaum scissors. The bladder was then noted to be out of harm's way. A scalpel was then used in the lower uterine for the hysterotomy, slowly until amniotomy was obtained a small amount of clear fluid was noted. The uterine incision was then manually stretched. The infant was noted to be in vertex postion -deep in the pelvis. Using a hand deep in pelvis, the head was elevated and brought to the hysterotomy incision. The head then delivered with minmal difficulty. The shoulders and the rest of the body followed immediately. The cord was cut clamped and the infant was handed off to the nurse awaiting. Infant was crying prior to hand off. The placenta was manually delivered. Using a lap gauze the uterus was cleared of all clots and debris. An aj retractor was placed to facilitate closure of uterus. The uterus was then exteriorized and a bladder blade was repositioned. The uterine incision was then closed with 0 Chromic suture in a running locked fashion. A second layer of the same suture was used in a running locked imbricated fashion. The uterine incision was inspected and oozing noted centrally. Additional suture was used to obtain hemostasis. In area of fibroid and scar tissue the tissue was somewhat friable. A Surgiseal wasl placed and good hemostasis was noted.The posterior aspect of the uterus was then inspected and anatomy was seen as above. The uterus was returned to its normal anatomic position within the abdominal cavity. Warm saline irrigation was used to clear all clots and debris from the abdomen. The uterine incision was inspected once more and noted to remain hemostatic. The bladder blade was removed and the peritoneum was closed with 2-0 chromic in a running fashion. The rectus muscles were then reapproximated and the rectus fascia was closed with a #1 PDS in a running fashion. The subcutaneous tissue was then inspected and any bleeding was controlled with Bovie electrocautery. The subcutaneous tissue was less than 1 cm. The skin was then closed with 4-0 Monocryl in a running subcuticular fashion. The skin incision was then clean dried and Dermabond was applied over the skin incision. All instrument sponge and needle counts were correct x3 for the procedure the patient tolerated the procedure well. She will proceed to recovery room in stable condition
--- NOTE | 2020-02-27 20:07 | PDOC DELIVERY SUMMARY ---
Delivery Summary - Maternal Hx : II Hx Para: I Hx # Term Pregnancies: 1 Hx # Pregnancies: 0 Hx Total # of Abortions (Sponateous & Elective): 0 Number of Living Children: 1 Gestational Age: 37.1 Risk Factors: Other - IUGR <3% and intermittent absent end diastolic flow on dopplers - Delivery Presentation: Vertex Support Person Present: Yes Location: OR : Repeat Placenta: Within Normal Limits Nuchal Cord: No Delivery of Placenta Date: 02/27/20 Estimated Blood Loss: 900cc - Medications Type of Anesthesia:: Spinal - Delivery Personnel RN: MATHEW LOPEZ MD: RIGOBERTO MILLER
[2020-02-27] MEDS ORDERED: OXYTOCIN/0.9 % SODIUM CHLORIDE 30 UNIT/500 ML RTUINJ ONE (20:50)
[2020-02-27] MEDS ORDERED: IBUPROFEN 800 MG TABLET PO SCH (22:00)
[2020-02-27] MEDS ORDERED: METHYLERGONOVINE MALEATE 0.2 MG TABLET ONE (23:07)
[2020-02-27] MEDS: OXYCODONE-ACETAMINOPHEN 5-325 MG TABLET PO PRN (23:16)
[2020-02-27] MEDS: METHYLERGONOVINE MALEATE 0.2 MG TABLET PO SCH (23:17)
[2020-02-28] MEDS ORDERED: KETOROLAC TROMETHAMINE INJ/PF 30 MG/1 ML SDV IV ONE (03:00)
[2020-02-28] MEDS ORDERED: METHYLERGONOVINE MALEATE 0.2 MG TABLET ONE ×2 (05:54→11:35)
[2020-02-28] MEDS: METHYLERGONOVINE MALEATE 0.2 MG TABLET PO SCH ×4 (05:59→23:12)
[2020-02-28 08:05] LABS: HEMATOCRIT 34.2 % (36.0-47.0); HEMOGLOBIN 11.7 g/dL (12.0-15.5); MEAN CORPUSCULAR HGB CONC 34.3 g/dL (32.0-36.0); MEAN CORPUSCULAR VOLUME 93 fl (80-97); PLATELET COUNT 178 10^3/uL (150-450); RED BLOOD COUNT 3.67 10^6/uL (3.72-5.28); RED CELL DISTRIBUTION WIDTH 12.8 % (11.5-14.0); WHITE BLOOD COUNT 11.5 10^3/uL (4.0-10.5)
[2020-02-28] MEDS: DOCUSATE SODIUM 100 MG CAPSULE PO SCH ×2 (09:52→17:58)
[2020-02-28] MEDS: PRENATAL VITAMIN W DHA CAPSULE PO SCH (09:52)
--- NOTE | 2020-02-28 11:04 | PDOC PROGRESS REPORT ---
Subjective-OB Progress Note for:: 02/28/20 Subjective: 30yo G2 now P2 s/p repeat ppd1. Pt is ambulating and voiding without difficulty. Reports pain well controlled with medication, denies any concerns at this time Physical Exam (OB) Vital Signs: Temp Pulse Resp BP Pulse Ox 97.7 F 70 16 109/70 100 02/28/20 10:00 02/28/20 07:22 02/28/20 07:22 02/28/20 07:22 02/28/20 07:22 Intake & Output 02/27/20 02/28/20 02/29/20 06:59 06:59 06:59 Intake Total 1000 Output Total 775 300 Balance -775 700 Weight 49.1 kg - General General Appearance: Appears well In distress: None - PIH/Pre-Eclampsia DTR's: 1 + Clonus: Negative Headache: Absent Epigastric Pain: No Visual Changes: No - Dressing Removed: Yes - pressure dressing Incision: Dressing Closure Type: pressure - Maternal Morbidity 59. Maternal Morbidity (serious complications experinced by the mother associated with labor and delivery: None of the above - Lochia Lochia Amount: Small 10-25 ml Lochia Color: Rubra/Red - Abdomen Description: Soft, Round Hernia Present: No Fundal Description: Firm, Midline Describe if Not Midline: massaged to firm Fundal Height: u/u - u/2 - Respiratory Respiratory Status: No respiratory distress - Extremities Upper extremity: Normal inspection Lower extremities: Normal inspection - Neurological Cognition: Normal Orientation: AAOx4 - Psychological Associated symptoms: Normal affect, Normal mood Objective-Diagnostic Laboratory: 02/28/20 07:37 02/27/20 02/27/20 02/27/20 10:35 16:53 16:53 WBC 6.9 RBC 4.14 Hgb 13.2 Hct 38.7 MCV 94 MCH 31.9 MCHC 34.1 RDW 12.8 Plt Count 202 Seg Neutrophils % 67.7 Urine Color STRAW Urine Appearance CLEAR Urine pH 8.0 Ur Specific [place] 1.003 Urine Protein NEGATIVE Urine Glucose (UA) NEGATIVE Urine Ketones NEGATIVE Urine Blood NEGATIVE Urine Nitrite NEGATIVE Ur Leukocyte Esterase NEGATIVE Blood Type A NEGATIVE Antibody Screen POSITIVE 02/28/20 02/28/20 07:37 07:37 WBC 11.5 H RBC 3.67 L Hgb 11.7 L Hct 34.2 L MCV 93 MCH 32.0 MCHC 34.3 RDW 12.8 Plt Count 178 Seg Neutrophils % Urine Color Urine Appearance Urine pH Ur Specific [place] Urine Protein Urine Glucose (UA) Urine Ketones Urine Blood Urine Nitrite Ur Leukocyte Esterase Blood Type A NEGATIVE Antibody Screen Assessment and Plan(PN) - Assessment and Plan (1) S/P repeat low transverse Is this a current diagnosis for this admission?: Yes Plan: routine pp care (2) IUGR (intrauterine growth restriction) Is this a current diagnosis for this admission?: Yes Plan: delivered - Time Spent with Patient Time with patient: Less than 15 minutes Medications reviewed and adjusted accordingly: Yes - Disposition Anticipated Discharge Disposition: Home, Self Care Anticipated Discharge Timeframe: within 24 hours
[2020-02-28] MEDS: IBUPROFEN 800 MG TABLET PO SCH ×2 (11:57→17:57)
[2020-02-28] MEDS: SIMETHICONE 80 MG TAB.CHEW PO PRN ×2 (12:00→18:00)
[2020-02-28] MEDS: OXYCODONE-ACETAMINOPHEN 5-325 MG TABLET PO PRN (15:55)
[2020-02-29] MEDS: IBUPROFEN 800 MG TABLET PO SCH ×2 (01:05→10:46)
[2020-02-29] MEDS: METHYLERGONOVINE MALEATE 0.2 MG TABLET PO SCH (05:06)
[2020-02-29] MEDS: OXYCODONE-ACETAMINOPHEN 5-325 MG TABLET PO PRN (05:06)
--- NOTE | 2020-02-29 09:11 | PDOC PROGRESS REPORT ---
Subjective-OB Progress Note for:: 02/29/20 Subjective: Doing well, ready to go home, pain under control, passing gas, eating and drinking well, voiding Physical Exam (OB) Vital Signs: Temp Pulse Resp BP Pulse Ox 97.9 F 79 16 108/65 99 02/29/20 07:23 02/29/20 07:23 02/29/20 07:23 02/29/20 07:23 02/29/20 07:23 Intake & Output 02/28/20 02/29/20 03/01/20 06:59 06:59 06:59 Intake Total 3220 Output Total 775 300 Balance -775 2920 Weight 49.1 kg - PIH/Pre-Eclampsia DTR's: 1 + Clonus: Negative Headache: Absent Epigastric Pain: No Visual Changes: No - Dressing Removed: Yes Incision: Dressing Closure Type: Surgical Glue - Maternal Morbidity 59. Maternal Morbidity (serious complications experinced by the mother associated with labor and delivery: None of the above - Lochia Lochia Amount: Scant < 10 ml Lochia Color: Rubra/Red - Abdomen Description: Soft Hernia Present: No Fundal Description: Firm, Midline Describe if Not Midline: massaged to firm Fundal Height: u/u - u/2 Objective-Diagnostic Laboratory: 02/28/20 07:37 02/28/20 07:37 Blood Type A NEGATIVE Assessment and Plan(PN) - Assessment and Plan (1) S/P repeat low transverse Is this a current diagnosis for this admission?: Yes (2) IUGR (intrauterine growth restriction) Is this a current diagnosis for this admission?: Yes - Time Spent with Patient Time with patient: Less than 15 minutes Medications reviewed and adjusted accordingly: Yes - Disposition Anticipated Discharge Disposition: Home, Self Care Anticipated Discharge Timeframe: within 24 hours - home today
--- NOTE | 2020-02-29 09:17 | PDOC DISCHARGE SUMMARY ---
Impression - Admit/DC Date/PCP Admission Date/Primary Care Provider: 02/27/20 13:10 LOVELY CHONG MD Discharge Date: 02/29/20 - Discharge Diagnosis (1) S/P repeat low transverse Is this a current diagnosis for this admission?: Yes (2) IUGR (intrauterine growth restriction) Is this a current diagnosis for this admission?: Yes - Additional Information Resuscitation Status: Full Code Discharge Diet: As Tolerated, Regular Discharge Activity: Activity As Tolerated, No Driving, No Lifting Over 10 Pounds, Pelvic Rest, No tub bath Referrals: LOVELY CHONG MD [Primary Care Provider] - (a 1 week) Prescriptions: Oxycodone HCl/Acetaminophen [Percocet 5-325 mg Tablet] 1 tab PO Q4HP PRN #20 tablet PRN Reason: Ibuprofen [Motrin 800 mg Tablet] 800 mg PO Q8A #30 tablet Home Medications: Vits96/Iron Fum/Folic [ Tablet] 1 each PO DAILY 03/24/18 Ibuprofen [Motrin 800 mg Tablet] 800 mg PO Q8A #30 tablet 02/29/20 Oxycodone HCl/Acetaminophen [Percocet 5-325 mg Tablet] 1 tab PO Q4HP PRN #20 tablet 02/29/20 HPI Gestational Age: 37.1 Reason(s) for Admission: Ceasarean Section-Repeat Admission Note: IUGR Procedures: NST, Ultrasound Intrapartum Procedure(s): : Low Cervical, Transverse Hospital Course Hospital Course: routine post op 59. Maternal Morbidity (serious complications experinced by the mother associated with labor and delivery: None of the above Results Laboratory Results: WBC 11.5 10^3/uL (4.0-10.5) H 02/28/20 07:37 RBC 3.67 10^6/uL (3.72-5.28) L 02/28/20 07:37 Hgb 11.7 g/dL (12.0-15.5) L 02/28/20 07:37 Hct 34.2 % (36.0-47.0) L 02/28/20 07:37 MCV 93 fl (80-97) 02/28/20 07:37 MCH 32.0 pg (27.0-33.4) 02/28/20 07:37 MCHC 34.3 g/dL (32.0-36.0) 02/28/20 07:37 RDW 12.8 % (11.5-14.0) 02/28/20 07:37 Plt Count 178 10^3/uL (150-450) 02/28/20 07:37 Lymph % (Auto) 24.0 % (13-45) 02/27/20 16:53 [place] % (Auto) 5.9 % (3-13) 02/27/20 16:53 Eos % (Auto) 1.9 % (0-6) 02/27/20 16:53 Baso % (Auto) 0.5 % (0-2) 02/27/20 16:53 Absolute Neuts (auto) 4.6 10^3/uL (1.7-8.2) 02/27/20 16:53 Absolute Lymphs (auto) 1.6 10^3/uL (0.5-4.7) 02/27/20 16:53 Absolute Monos (auto) 0.4 10^3/uL (0.1-1.4) 02/27/20 16:53 Absolute Eos (auto) 0.1 10^3/uL (0.0-0.6) 02/27/20 16:53 Absolute Basos (auto) 0.0 10^3/uL (0.0-0.2) 02/27/20 16:53 Seg Neutrophils % 67.7 % (42-78) 02/27/20 16:53 POC Glucose 70 mg/dL (70-110) 02/27/20 12:57 Urine Color STRAW 02/27/20 10:35 Urine Appearance CLEAR 02/27/20 10:35 Urine pH 8.0 (5.0-9.0) 02/27/20 10:35 Ur Specific [place] 1.003 02/27/20 10:35 Urine Protein NEGATIVE mg/dL (NEGATIVE) 02/27/20 10:35 Urine Glucose (UA) NEGATIVE mg/dL (NEGATIVE) 02/27/20 10:35 Urine Ketones NEGATIVE mg/dL (NEGATIVE) 02/27/20 10:35 Urine Blood NEGATIVE (NEGATIVE) 02/27/20 10:35 Urine Nitrite NEGATIVE (NEGATIVE) 02/27/20 10:35 Urine Bilirubin NEGATIVE (NEGATIVE) 02/27/20 10:35 Urine Urobilinogen NEGATIVE mg/dL (<2.0) 02/27/20 10:35 Ur Leukocyte Esterase NEGATIVE (NEGATIVE) 02/27/20 10:35 Urine Ascorbic Acid NEGATIVE (NEGATIVE) 02/27/20 10:35 Urine Opiates Screen NEGATIVE 02/27/20 10:35 Urine Methadone Screen NEGATIVE 02/27/20 10:35 Ur Barbiturates Screen NEGATIVE 02/27/20 10:35 Ur Phencyclidine Scrn NEGATIVE 02/27/20 10:35 Ur Amphetamines Screen NEGATIVE 02/27/20 10:35 U Benzodiazepines Scrn NEGATIVE 02/27/20 10:35 Urine Cocaine Screen NEGATIVE 02/27/20 10:35 U Marijuana (THC) Screen NEGATIVE 02/27/20 10:35 Blood Type A NEGATIVE 02/28/20 07:37 Antibody Screen POSITIVE 02/27/20 16:53 Antibody Identification RHOGAM INDUCED ANTI-D 02/27/20 16:53 Screen NEGATIVE 02/28/20 07:37 Plan Health Concerns: post op pain Plan of Treatment: discharge home, pain meds, rev S&S to report Goals: no complications Time Spent: Less than 30 Minutes
[2020-02-29] MEDS: PRENATAL VITAMIN W DHA CAPSULE PO SCH (10:46)
[2020-02-29] MEDS: DOCUSATE SODIUM 100 MG CAPSULE PO SCH (10:46)
[2020-02-29 11:45] VITALS: BP 124/74
== END 2020-02-29 12:00 | disposition home or self-care (01) | DRG 788 ==
LOC: LC 10:26 → LR 13:10 → 2S 21:25
PROVIDERS: ADMIT Obstetrics & Gynecology; ATTEND Obstetrics & Gynecology
PROC: 10D00Z1 Extraction of Products of Conception, Low, Open Approach (ICD-10-PCS; principal; 2020-02-27)
PROC: 3E0234Z Introduction of Serum, Toxoid and Vaccine into Muscle, Percutaneous Approach (ICD-10-PCS; 2020-02-28)
DX: O36.8190 Decreased fetal movements, unspecified trimester, not applicable or unspecified (principal); O36.5930 Maternal care for other known or suspected poor fetal growth, third trimester, not applicable or unspecified; O34.211 Maternal care for low transverse scar from previous cesarean delivery; O34.13 Maternal care for benign tumor of corpus uteri, third trimester; D25.2 Subserosal leiomyoma of uterus; O62.2 Other uterine inertia; O26.893 Other specified pregnancy related conditions, third trimester; Z3A.37 37 weeks gestation of pregnancy; Z37.0 Single live birth; Z87.891 Personal history of nicotine dependence; Z67.11 Type A blood, Rh negative
CPT/HCPCS: 1961; 36415; 64486; 76942; 80307; 81005; 82962; 85025; 85027; 85461; 86850; 86870; 86900; 86901; 88307; 94760; 94799; J0131; J0690; J1170; J1885; J2175; J2210; J2250; J2270; J2370; J2405; J2590; J2704; J2790; J2795; J3010; J3490; J7120